=== PATIENT | female | born 1970 | race Caucasian/White ===

== ENCOUNTER 2019-04-23 12:34 | Emergency (ER) | payer OTHER ==
[~2019-04-23] VITALS: Ht 157.5 cm; Wt 95.3 kg
[~2019-04-23 12:34] MED LIST: SYMMETREL100 MG PO; SYNTHROID112 MCG PO
[2019-04-23] MEDS ORDERED: [UNRECOGNIZED DRUG - OTHER] (12:56)
[2019-04-23] MEDS ORDERED: HYDROCHLOROTHIA25 MG (12:57)
[2019-04-23] MEDS ORDERED: INDERAL XL80 MG (12:57)
== END 2019-04-23 21:57 | disposition home or self-care (01) ==
LOC: ER 12:34
DX: K29.70 Gastritis, unspecified, without bleeding (principal); K62.5 Hemorrhage of anus and rectum

== ENCOUNTER 2020-02-06 13:40 | Emergency (ER) | payer OTHER ==
[~2020-02-06] VITALS: Ht 160 cm; Wt 99.8 kg
[~2020-02-06 13:40] MED LIST changes: +HYDROCHLOROTHIA25 MG; +INDERAL XL80 MG; +[UNRECOGNIZED DRUG - OTHER]
[2020-02-06] MEDS ORDERED: MIRAPEX ER3 MG (14:31)
[2020-02-06] MEDS ORDERED: INDERAL LA80 MG PO (14:32)
[2020-02-06] MEDS ORDERED: HYDROCHLOROTHIA25 MG (14:33)
[2020-02-06] MEDS ORDERED: PREVACID30 MG (14:33)
[2020-02-06] MEDS ORDERED: SYNTHROID137 MCG (14:33)
[2020-02-06] MEDS ORDERED: ATROVENT HFA12.9 GM (14:34)
[2020-02-06] MEDS ORDERED: SYMBICORT 16010.2 GM (14:34)
[2020-02-06] MEDS ORDERED: MUCINEX FAST-M1 EAC6 PO (21:53)
[2020-02-06] MEDS ORDERED: ACETAMINOPHEN500 M1 PO (21:53)
== END 2020-02-06 22:00 | disposition home or self-care (01) ==
LOC: ER 13:40
DX: J06.9 Acute upper respiratory infection, unspecified (principal); Z20.828 Contact with and (suspected) exposure to other viral communicable diseases

== ENCOUNTER 2020-07-09 07:29 | Day surgery (SDC) | payer OTHER ==
[~2020-07-09 07:29] MED LIST changes: +ACETAMINOPHEN500 M1 PO; +ATROVENT HFA12.9 GM; +INDERAL LA80 MG PO; +MIRAPEX ER3 MG; +MUCINEX FAST-M1 EAC6 PO; +PREVACID30 MG; +SYMBICORT 16010.2 GM; +SYNTHROID125 MCG PO; +SYNTHROID137 MCG
== END 2020-07-09 19:20 | disposition home or self-care (01) ==
LOC: CIR.AMB 07:29
PROVIDERS: ATTEND Colon & Rectal Surgery
DX: K64.8 Other hemorrhoids (principal); Z20.822 Contact with and (suspected) exposure to COVID-19

== ENCOUNTER → 2020-07-23 | Emergency (ER) | payer OTHER ==
[~2020-07-23] VITALS: Ht 157.5 cm; Wt 106.1 kg
[~2020-07-23] MED LIST changes: +KETO10TA2 PO; +NEURONTIN300 MG PO; +SKELAXIN800 MG PO; +VOLTAREN100 GM TOP
== END | disposition home or self-care (01) ==
LOC: ER 09:33
DX: M54.12 Radiculopathy, cervical region (principal)